=== PATIENT | female | born 1990 | race Caucasian/White ===

== ENCOUNTER 2019-01-20 18:52 | Emergency (ER) | payer MEDICAID ==
[2019-01-20] MEDS ORDERED: IBUPROFEN 400 MG TABLET PO ONE (19:02)
[2019-01-20] MEDS ORDERED: ACETAMINOPHEN 500 MG TABLET PO ONE (19:02)
--- NOTE | 2019-01-20 19:08 | Emergency Department Record ---
History of Present Illness - General Chief Complaint: Fever Stated Complaint: HIGH FEVER Time Seen by Provider: 01/20/19 18:58 Source: Patient Mode of Arrival: Ambulatory Limitations: No limitations - History of Present Illness Initial Comments: 28 yo female presents to ED for evaluation of fever symptoms and body aches for the past 2 days. Patient reports mild productive cough, reports mild nausea/vomiting symptoms as well. Patient denies flank pain or urinary symptoms, denies abdominal pain or rash symptoms. Patient denies health problems at her baseline, reports that she did not receive an influenza vaccination this year. MD Complaint: Fever Onset/Timin -: Days(s) Maximum Temperature: 103 F Temperature Source: Oral Associated Symptoms: Cough - Related Data Previous Rx's Medication Instructions Recorded Cephalexin [Keflex] 500 mg PO TID #21 cap 01/20/19 Ondansetron [Zofran Odt] 4 mg PO Q8H PRN #15 tab.rapdis 01/20/19 Allergies Allergy/AdvReac Type Severity Reaction Status Date / Time No Known Drug Allergies Allergy Verified 01/20/19 19:04 Review of Systems Constitutional: Reports: Fever. Denies: Chills, Malaise, Night sweats Eyes: Denies: Eye discharge, Eye pain ENT: Denies: Congestion, Ear pain, Epistaxis Respiratory: Reports: Cough. Denies: Dyspnea Cardiovascular: Denies: Chest pain, Dyspnea on exertion Endocrine: Reports: Fatigue Gastrointestinal: Reports: Nausea, Vomiting. Denies: Abdominal pain Genitourinary: Denies: Incontinence, Retention Musculoskeletal: Denies: Arthralgia, Back pain Skin: Denies: Bruising, Change in color Neurological: Denies: Abnormal gait, Confusion, Headache, Seizure Psychiatric: Denies: Anxiety Hematological/Lymphatic: Denies: Anemia, Blood Clots Physical Exam - General General Appearance: Alert, Oriented x3, Cooperative, Mild distress Limitations: No limitations - Head Head exam: Atraumatic, Normocephalic, Normal inspection Head exam detail: negative: Abrasion, Contusion, Barnard's sign, General tenderness, Hematoma, Laceration - Eye Eye exam: Normal appearance. negative: Conjunctival injection, Periorbital swelling, Periorbital tenderness, Scleral icterus - ENT Ear exam: negative: Auricular hematoma, Auricular trauma Nasal Exam: negative: Active bleeding, Discharge, Dried blood, Foreign body Mouth exam: negative: Drooling, Laceration, Muffled voice, Tongue elevation Throat exam: negative: Tonsillar erythema, Tonsillomegaly, R peritonsillar mass, L peritonsillar mass - Neck Neck exam: Normal inspection. negative: Meningismus, Tenderness - Respiratory Respiratory exam: Normal lung sounds bilaterally. negative: Rales, Respiratory distress, Rhonchi, Stridor - Cardiovascular Cardiovascular Exam: Normal rhythm, Normal heart sounds, Tachycardia - GI/Abdominal GI/Abdominal exam: Soft. negative: Rebound, Rigid, Tenderness - Rectal Rectal exam: Deferred - exam: Deferred - Extremities Extremities exam: Normal inspection. negative: Pedal edema, Tenderness - Back Back exam: Denies: CVA tenderness (R), CVA tenderness (L) - Neurological Neurological exam: Alert, Normal gait, Oriented X3 - Psychiatric Psychiatric exam: Normal affect, Normal mood - Skin Skin exam: Normal color. negative: Abrasion Type of lesion: negative: abrasion Course - Reevaluation(s) Reevaluation #1: 01/20/19 19:49 Laboratory studies were reviewed and appear grossly unremarkable for an acute process except for the following: WBC 13.1 UA: 36-50 WBCs 4+ Bacteria 3-6 Epithelial cells 3-6 RBCs Findings appear c/w pyelonephritis No meningeal signs are present on examination Rocephin ordered to infuse pending repeat temperature/reassessment. Reevaluation #2: 01/20/19 20:46 Patient was reassessed, pulse improved to 92, temperature improved to 100.3, BP 105/66 on re-examination (92/48 was taken while sleeping). Patient is sleeping on re-examination, reports that she is feeling much better. No meningeal signs on re-examination. Patient appears stable for discharge with treatment for pyelonephritis with Keflex and Zofran as needed. Medical Decision Making - Lab Data Result diagrams: 01/20/19 19:13 01/20/19 19:13 Disposition Disposition: Discharge Clinical Impression: Pyelonephritis, Fever in adult Disposition: Home, Self-Care Condition: (2) Stable Instructions: Fever in Adults (ED) Additional Instructions: Return to ED if your symptoms worsen or if you have any concerns. Keflex and Zofran as directed. Follow-up with your family doctor in 3-5 days as directed. Prescriptions: Cephalexin [Keflex] 500 mg PO TID #21 cap Ondansetron [Zofran Odt] 4 mg PO Q8H PRN #15 tab.rapdis PRN Reason: Nausea/Vomiting Forms: Patient Portal Access Time of Disposition: 20:48 Quality - Quality Measures Quality Measures: N/A - Blood Pressure Screening Does Patient Have Any of the Following: No Blood Pressure Classification: Normal BP Reading Systolic Measurement: 105 Diastolic Measurement: 66 Screening for High Blood Pressure: < Normal BP, F/U Not Required > [G8783]
[2019-01-20] MEDS ORDERED: 0.9 % SODIUM CHLORIDE 1000ML 1,000 ML IV SCH (19:15)
[2019-01-20 19:23] LABS: ABSOLUTE NEUTROPHIL COUNT 10.59; HEMATOCRIT 40.4 % (35.0-47.0); HEMOGLOBIN 13.1 gm/dl (11.6-16.0); MEAN CELL VOLUME 86.5 fl (81-97); MEAN CORPUSCULAR HEMOGLOBIN 28.1 pg (27-33); MEAN CORPUSCULAR HGB CONC 32.4 g/dl (32-36); MEAN PLATELET VOLUME 10.7 fl (7.4-10.4); PLATELET COUNT 206 K/uL (130-400); RED BLOOD COUNT 4.67 M/uL (3.80-5.40); RED CELL DISTRIBUTION WIDTH 13.3 % (11.5-14.5); WHITE BLOOD COUNT W/O DIFF 13.1 K/uL (4.2-12.2)
[2019-01-20 19:31] LABS: BLOOD UREA NITROGEN 9 mg/dL (6-20); CREATININE 0.6 mg/dL (0.5-0.9); EST GLOMERULAR FILTRATION RATE > 60 mL/min
[2019-01-20 19:32] LABS: INFLUENZA A NEGATIVE (NEGATIVE); INFLUENZA B NEGATIVE (NEGATIVE)
[2019-01-20 19:33] LABS: URINE APPEARANCE CLOUDY; URINE BILIRUBIN NEGATIVE (NEGATIVE); URINE BLOOD MODERATE (NEGATIVE); URINE COLOR YELLOW; URINE GLUCOSE (UA) NEGATIVE (NEGATIVE); URINE KETONE NEGATIVE (NEGATIVE); URINE LEUKOCYTE ESTERASE MODERATE (NEGATIVE); URINE NITRITE NEGATIVE (NEGATIVE); URINE UROBILINOGEN 0.2 E.U./dL (0.20 - 1.00)
[2019-01-20 19:34] LABS: GLUCOSE,RANDOM 139 mg/dL (74-109)
[2019-01-20 19:37] LABS: ALB/GLOB RATIO 1.7 (1.1-1.8); ALBUMIN 4.4 g/dL (4.0-5.0); ALKALINE PHOSPHATASE 81 U/L (35-104); ALT/SGPT 22 U/L (<33); AST/SGOT 16 U/L (10.0-35.0)
[2019-01-20 19:46] LABS: URINE BACTERIA 4+; URINE WBC 36 - 50 (0-2/hpf)
[2019-01-20] MEDS ORDERED: CEFTRIAXONE 1GM/50ML BAG 1 GM/50 ML BAG IVPB ONE (19:51)
[2019-01-20 19:52] LABS: PLATELET ESTIMATE NORMAL (NORMAL)
--- NOTE | 2019-01-20 19:55 | RADIOLOGY REPORT ---
EXAMINATION: Two View Chest Radiographs EXAM DATE: 01/20/2019 7:47 PM TECHNIQUE: Frontal and lateral views INDICATION: cough COMPARISON: None ENCOUNTER: Not applicable FINDINGS: The heart, mediastinum, and pulmonary vasculature are normal. No lung consolidation or pleural effu sions are present. IMPRESSION: Negative for active intrathoracic disease. Dictated by: Timoteo Watkins MD on 01/20/2019 7:52 PM. .
== END 2019-01-20 21:13 | disposition home or self-care (01) ==
LOC: ER 18:52
DX: N10 Acute pyelonephritis (principal); R50.81 Fever presenting with conditions classified elsewhere
CPT/HCPCS: 99284 ×2; 96365; 80053; 81001; 81025; 87400; 85027; 71046; J0696; J7030